=== PATIENT | male | born 1955 | race Caucasian/White ===

== ENCOUNTER 2019-04-17 11:58 | Day surgery (SDC) | payer MEDICARE, OTHER ==
[~2019-04-17] VITALS: Ht 185.4 cm; Wt 102.1 kg
[~2019-04-17 11:58] MED LIST: ALLEGRA ALLERGY60 MG PO; ASPI81EC PO; CEFU500 PO; CYCL10; CYCL10 PO; DOCU100 PO; EPIPEN 2-P0.3 MG/0.3 IM; EZET10-40 PO; FISH OIL 1,0001 EAC1 PO; HYDACE5 PO; HYDR1TAB94 PO; MULTI VITAMIN1 EACH PO; MULVITMINF PO; NAPR220 PO; NAPR550 PO; Norco 7.5-3251 EACH PO; OXYACE5T PO; RXNAPNA550 PO; SIMV40; Simvastatin20 MG PO; TUMS DUAL ACTI1 EACH PO; VITAMIN C500 M1 PO; Vitamin D2000 UNIT PO
== END 2019-04-17 13:35 | disposition home or self-care (01) ==
LOC: ORSCSDS 11:58
PROVIDERS: Anesthesiology
PROC: 3E0R33Z Introduction of Anti-inflammatory into Spinal Canal, Percutaneous Approach (ICD-10-PCS; principal; 2019-04-17 13:00)
DX: M51.16 Intervertebral disc disorders with radiculopathy, lumbar region (principal); G47.33 Obstructive sleep apnea (adult) (pediatric); E78.00 Pure hypercholesterolemia, unspecified; Z79.899 Other long term (current) drug therapy
CPT/HCPCS: J1040

== ENCOUNTER 2023-03-29 12:14 | Day surgery (SDC) | payer MEDICARE, OTHER ==
[~2023-03-29] VITALS: Ht 182.9 cm; Wt 112.3 kg
[2023-03-29 14:46] VITALS: BP 132/88
== END 2023-03-29 14:48 | disposition home or self-care (01) ==
LOC: ORSCSDS 12:14
PROVIDERS: Internal Medicine Gastroenterology
PROC: 0DBP8ZX Excision of Rectum, Via Natural or Artificial Opening Endoscopic, Diagnostic (ICD-10-PCS; principal; 2023-03-29 14:00)
PROC: 0DBK8ZX Excision of Ascending Colon, Via Natural or Artificial Opening Endoscopic, Diagnostic (ICD-10-PCS; principal; 2023-03-29 14:00)
DX: Z12.11 Encounter for screening for malignant neoplasm of colon (principal); D12.2 Benign neoplasm of ascending colon; D12.8 Benign neoplasm of rectum; K57.30 Diverticulosis of large intestine without perforation or abscess without bleeding; K64.4 Residual hemorrhoidal skin tags; Z86.010 Personal history of colon polyps; G47.33 Obstructive sleep apnea (adult) (pediatric)
CPT/HCPCS: 88305; J0461; J2001; J2405; J2704; J7120; Q9968